=== PATIENT | male | born 1975 | race African-American/Black ===

== ENCOUNTER 2016-09-03 21:09 | Emergency (ER) | payer OTHER ==
[~2016-09-03] VITALS: Ht 188 cm; Wt 122.5 kg
[2016-09-03 22:07] VITALS: BP 128/94
== END 2016-09-04 00:38 | disposition home or self-care (01) ==
LOC: ER 21:13
DX: L02.214 Cutaneous abscess of groin (principal)

== ENCOUNTER 2016-09-26 06:18 | Emergency (ER) | payer SELFPAY ==
[~2016-09-26] VITALS: Ht 172.7 cm; Wt 118.8 kg
[2016-09-26 08:26] VITALS: BP 127/67
== END 2016-09-26 08:53 | disposition home or self-care (01) ==
LOC: ER 06:22
DX: L03.012 Cellulitis of left finger (principal)
CPT/HCPCS: 26010